=== PATIENT | female | born 1985 | race Caucasian/White ===

== ENCOUNTER 2023-04-01 23:57 | Emergency (ER) | payer SELFPAY ==
--- NOTE | 2023-04-02 00:51 | ER ---
Nurse's Notes [facility] Name: Dayana Blackburn Age: 37 yrs Sex: Female : 1985 Arrival Date: 04/01/2023 Time: 23:57 Bed IW2 Private MD: Diagnosis: Right plantar foot callus Presentation: 04/02 00:33 Chief complaint: Patient states: Patient C/O right bottom of foot pain of 2,onset 1 pf1 month ago, worse tonight. Patient stated took Tylenol 325mg x 4 tablets at 2330. Patient denies any foot injury. Coronavirus screen: Vaccine status: Patient reports being unvaccinated. Client denies travel out of the [place] in the last 14 days. At this time, the client does not indicate any symptoms associated with coronavirus-19. Ebola Screen: Patient negative for fever greater than or equal to 101.5 degrees Fahrenheit, and additional compatible Ebola Virus Disease symptoms. Initial Sepsis Screen: Does the patient meet any 2 criteria? No. Patient's initial sepsis screen is negative. Does the patient have a suspected source of infection? No. Patient's initial sepsis screen is negative. Risk Assessment: Do you want to hurt yourself or someone else? Patient reports no desire to harm self or others. 00:33 Method Of Arrival: Ambulatory pf1 00:33 Acuity: JALEESA 4 pf1 Historical: - Allergies: 00:37 Cinnamon; pf1 - Home Meds: 00:37 Depakote Oral [Active]; pf1 - PMHx: 00:37 Bipolar disorder; pf1 - PSHx: 00:37 section; tubaligation; pf1 - Immunization history:: Adult Immunizations up to date, Client reports having NOT received the Covid vaccine. Last tetanus immunization: < 5 years ago Flu vaccine is not up to date. - Social history:: Smoking status: Patient reports the use of cigarette tobacco products, Patient/guardian denies using alcohol, street drugs. - Family history:: not pertinent. Screenin:35 [facility] ED Fall Risk Assessment (Adult) History of falling in the last 3 months, pf1 including since admission No falls in past 3 months (0 pts) Confusion or Disorientation No (0 pts) Intoxicated or Sedated No (0 pts) Impaired Gait No (0 pts) Mobility Assist Device Used No (0 pt) Altered Elimination No (0 pt) Score/Fall Risk Level 0 - 2 = Low Risk Oriented to surroundings, Maintained a safe environment, Educated pt \T\ family on fall prevention, incl call for assistance when getting out of bed, Assessed \T\ reinforced patient's understanding of fall precautions, Provided non-skid footwear, Hourly rounding (assess needs \T\ fall precautionary measures) done, Used ambulatory aids as needed (educated on \T\ assisted with), Used gait belt as appropriate. 00:35 Abuse screen: Denies threats or abuse. Nutritional screening: No deficits noted. pf1 Tuberculosis screening: No symptoms or risk factors identified. Assessment: 04/01 00:35 General: Appears in no apparent distress. uncomfortable, well groomed, well developed, pf1 Behavior is calm, cooperative, appropriate for age, quiet. 00:35 Pain: Complains of pain in right foot. pf1 00:35 Neuro: No deficits noted. Level of Consciousness is awake, alert, obeys commands, pf1 Oriented to person, place, time, situation. 00:35 Cardiovascular: No deficits noted. Capillary refill < 3 seconds Patient's skin is warm pf1 and dry. Respiratory: No deficits noted. Airway is patent Respiratory effort is even, unlabored, Respiratory pattern is regular, symmetrical. GI: No deficits noted. No signs and/or symptoms were reported involving the gastrointestinal system. : No deficits noted. No signs and/or symptoms were reported regarding the genitourinary system. EENT: No deficits noted. No signs and/or symptoms were reported regarding the EENT system. Derm: No deficits noted. No signs and/or symptoms reported regarding the dermatologic system. Musculoskeletal: Reports pain in right foot since 1 month. Pain is 2 out of 10 on a pain scale. Vital Signs: 04/02 00:33 BP 126 / 89; Pulse 84; Resp 18; Temp 97.1; Pulse Ox 100% on R/A; Weight 83.91 kg; pf1 Height 5 ft. 2 in. ; Pain 2/10; 00:33 Body Mass Index 33.84 (83.91 kg, 157.48 cm) pf1 00:33 Pain Scale: Adult pf1 ED Course: 04/01 00:35 Patient has correct armband on for positive identification. pf1 04/02 00:04 Patient arrived in ED. [id number] 00:19 Esvin Schaffer MD is Attending Physician. sp4 00:35 Arm band placed on right wrist. pf1 00:35 No provider procedures requiring assistance completed. Patient did not have IV access pf1 during this emergency room visit. 00:37 Triage completed. pf1 00:49 Casey Yates DPM is Referral Physician. sp4 Administered Medications: 00:40 Not Given (Patient Refused): traMADol PO 100 mg PO once pf1 00:51 Drug: Ibuprofen PO 800 mg Route: PO; pf1 00:54 Follow up: Response: No adverse reaction; Marked relief of symptoms; Pain is unchanged, pf1 physician notified Medication: 04/01 00:50 VIS not applicable for this client. pf1 Outcome: 04/02 00:51 Discharge ordered by . sp4 00:54 Discharged to home ambulatory. pf1 00:54 Condition: good 00:54 Discharge instructions given to patient, Instructed on discharge instructions, follow up and referral plans. Demonstrated understanding of instructions, follow-up care. 00:55 Patient left the ED. pf1 Signatures: Delia Paniagua [email or web address] Margarita Santos, RN RN pf1 Esvin Schaffer MD MD sp4
--- NOTE | 2023-04-02 00:51 | EDPHYS ---
Physician Documentation [facility] Name: Dayana Blackburn Age: 37 yrs Sex: Female : 1985 Arrival Date: 04/01/2023 Time: 23:57 Bed IW2 Private MD: ED Physician Esvin Schaffer HPI: 04/02 00:19 This 37 yrs old Female presents to ER via Unassigned with complaints of sp4 Puncture Wound To Foot. 00:33 This is a very pleasant female presents with fairly recent onset of the right foot pain sp4 and callus to the bottom of the right foot. There is moderate size right foot callus plantar surface in the arch of the foot. Patient states pain was moderate to severe today in the right foot and she developed vomiting. Patient has noticed callus to the right foot approximately 1 month ago.. Historical: - Allergies: 00:37 Cinnamon; pf1 - Home Meds: 00:37 Depakote Oral [Active]; pf1 - PMHx: 00:37 Bipolar disorder; pf1 - PSHx: 00:37 section; tubaligation; pf1 - Immunization history:: Adult Immunizations up to date, Client reports having NOT received the Covid vaccine. Last tetanus immunization: < 5 years ago Flu vaccine is not up to date. - Social history:: Smoking status: Patient reports the use of cigarette tobacco products, Patient/guardian denies using alcohol, street drugs. - Family history:: not pertinent. ROS: 00:33 Constitutional: Negative for fever, chills, and weight loss, Eyes: Negative for injury, sp4 pain, redness, and discharge, ENT: Negative for injury, pain, and discharge, Neck: Negative for injury, pain, and swelling, Cardiovascular: Negative for chest pain, palpitations, and edema, Respiratory: Negative for shortness of breath, cough, wheezing, and pleuritic chest pain, Abdomen/GI: Negative for abdominal pain, nausea, vomiting, diarrhea, and constipation, Back: Negative for injury and pain, : Negative for injury, bleeding, discharge, and swelling, MS/Extremity: Negative for injury and deformity positive for, right foot pain, right foot callus Skin: Negative for injury, rash, and discoloration, Neuro: Negative for headache, weakness, numbness, tingling, and seizure, Psych: Negative for depression, anxiety, Allergy/Immunology: Negative for hives, rash, and allergies Endocrine: Negative for neck swelling, polydipsia, polyuria, polyphagia, and weight changes Hematologic/Lymphatic: Negative for swollen nodes, abnormal bleeding, and unusual bruising Exam: 00:33 Constitutional: This is a well developed, well nourished patient who is awake, alert, sp4 and in no acute distress. Head/Face: Normocephalic, atraumatic. Eyes: Pupils equal round and reactive to light, extra-ocular motions intact. Lids and lashes normal. Conjunctiva and sclera are not injected. Cornea within normal limits. Periorbital areas with no swelling, redness, or edema. ENT: Nares patent. No nasal discharge, no septal abnormalities noted. Tympanic membranes are normal and external auditory canals are clear. Oropharynx with no redness, swelling, or masses, exudates, or evidence of obstruction, uvula midline. Mucous membranes moist. Neck: Trachea midline, no thyromegaly or masses palpated, and no cervical lymphadenopathy. Supple, full range of motion without nuchal rigidity, or vertebral point tenderness. No Meningismus. Chest/axilla: Normal chest wall appearance and motion. Nontender with no deformity. No lesions are appreciated. Cardiovascular: Regular rate and rhythm with a normal S1 and S2. No gallops, murmurs, or rubs. Normal PMI, no JVD. No pulse deficits. Respiratory: Lungs have equal breath sounds bilaterally, clear to auscultation and percussion. No rales, rhonchi or wheezes noted. No increased work of breathing, no retractions or nasal flaring. Abdomen/GI: Soft, non-tender, with normal bowel sounds. No distension or tympany. No guarding or rebound. No evidence of tenderness throughout. Back: No spinal tenderness. No costovertebral tenderness. Skin: Warm, dry with normal turgor. Normal color with no rashes, no lesions, and no evidence of cellulitis. Right foot plantar callus. MS/ Extremity: Pulses equal, no cyanosis. Neurovascular intact. Full, normal range of motion. Right foot plantar callus tender to palpation Neuro: Awake and alert, GCS 15, oriented to person, place, time, and situation. Cranial nerves II-XII grossly intact. Motor strength 5/5 in all extremities. Sensory grossly intact. Psych: Awake, alert, with orientation to person, place and time. Behavior, mood, and affect are within normal limits Vital Signs: 00:33 BP 126 / 89; Pulse 84; Resp 18; Temp 97.1; Pulse Ox 100% on R/A; Weight 83.91 kg; pf1 Height 5 ft. 2 in. ; Pain 2/10; 00:33 Body Mass Index 33.84 (83.91 kg, 157.48 cm) pf1 00:33 Pain Scale: Adult pf1 MDM: 00:22 Patient medically screened. sp4 00:48 Differential diagnosis: foreign body, penetrating trauma, Callus, foot callus, puncture sp4 wound. Data reviewed: vital signs, nurses notes. ED course: Patient at this time declined a x-ray of the foot to rule out foreign body, patient was explained that we do not resect foot calluses on the emergent basis. Refer patient to local check airman for evaluation in office for foot callus resection. Administered Medications: 00:40 Not Given (Patient Refused): traMADol PO 100 mg PO once pf1 00:51 Drug: Ibuprofen PO 800 mg Route: PO; pf1 00:54 Follow up: Response: No adverse reaction; Marked relief of symptoms; Pain is unchanged, pf1 physician notified Disposition Summary: 04/02/23 00:51 Discharge Ordered Location: Home sp4 Problem: new sp4 Symptoms: are unchanged sp4 Condition: Stable sp4 Diagnosis - Right plantar foot callus sp4 Followup: sp4 - With: Casey Yates DPM - When: 1 week - Reason: Recheck today's complaints Discharge Instructions: - Discharge Summary Sheet sp4 - Corns and Calluses sp4 Signatures: Dispatcher [employer] EDMS Margarita Santos RN RN pf1 Esvin Schaffer MD MD sp4 Corrections: (The following items were deleted from the chart) 00:47 00:34 Foot Right 3 View+RAD.RAD.BRZ ordered. EDMS EDMS
[2023-04-02] MEDS ORDERED: IBUPROFEN 400 MG TAB ONE (00:57)
[2023-04-02 01:38] VITALS: BP 126/89; TEMP 97.1; O2SAT 100
== END 2023-04-02 00:55 | disposition home or self-care (01) ==
LOC: ER 23:57
DX: L84 Corns and callosities (principal)
CPT/HCPCS: 99283

== ENCOUNTER → 2023-11-24 | Emergency (ER) | payer OTHER, SELFPAY ==
--- NOTE | 2023-11-24 08:31 | ER ---
Nurse's Notes [facility] Name: Dayana Blackburn Age: 38 yrs Sex: Female : 1985 Arrival Date: 11/24/2023 Time: 08:02 Bed 13 Private MD: Diagnosis: Other acute conjunctivitis Presentation: 11/24 08:19 Chief complaint: Bilateral eye drainage, itching, and burning x 2 days. 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 Coronavirus screen: At this time, the client does not indicate any symptoms associated with coronavirus-19. Ebola Screen: No symptoms or risks identified at this time. Initial Sepsis Screen: Does the patient meet any 2 criteria? No. Patient's initial sepsis screen is negative. Does the patient have a suspected source of infection? No. Patient's initial sepsis screen is negative. Risk Assessment: Do you want to hurt yourself or someone else? Patient reports no desire to harm self or others. Onset of symptoms was November 23, 2023. 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 Flu vaccine is not up to date. - Social history:: Smoking status: Patient reports the use of cigarette tobacco products, smokes one-half pack cigarettes per day. - Family history:: not pertinent. - Hospitalizations: : No recent hospitalization is reported. Screenin:59 [facility] ED Fall Risk Assessment (Adult) History of falling in the last 3 months, cp4 including since admission No falls in past 3 months (0 pts) Confusion or Disorientation No (0 pts) Intoxicated or Sedated No (0 pts) Impaired Gait No (0 pts) Mobility Assist Device Used No (0 pt) Altered Elimination No (0 pt) Score/Fall Risk Level 0 - 2 = Low Risk. 08:59 [facility] ED Fall Risk Assessment (Adult) Score/Fall Risk Level 0 - 2 = Low Risk cp4 Oriented to surroundings, Maintained a safe environment, Educated pt \\T\\ family on fall prevention, incl call for assistance when getting out of bed, Assessed \\T\\ reinforced patient's understanding of fall precautions, Provided non-skid footwear, Hourly rounding (assess needs \\T\\ fall precautionary measures) done. Abuse screen: Denies threats or abuse. Nutritional screening: No deficits noted. Tuberculosis screening: No symptoms or risk factors identified. Assessment: 08:59 General: Appears in no apparent distress. Behavior is calm, cooperative, appropriate cp4 for age. Pain: Denies pain. Vital Signs: 08:19 BP 126 / 87; Pulse 84; Resp 16; Temp 97.7(TE); Pulse Ox 100% on R/A; Weight 86.18 kg; hb Height 5 ft. 2 in. ; Pain 3/10; 08:19 Body Mass Index 34.75 (86.18 kg, 157.48 cm) hb 08:19 Pain Scale: Adult hb ED Course: 08:12 Patient arrived in ED. mg5 08:12 Andrés Cabrera MD is Attending Physician. rn 08:15 Rody Scott is Primary Nurse. cp4 08:21 Triage completed. hb 08:23 Arm band placed on. 08:59 Bed in low position. Call light in reach. Side rails up X 1. cp4 08:59 No provider procedures requiring assistance completed. Patient did not have IV access cp4 during this emergency room visit. 09:00 Provided Education on: conjuctivitis. cp4 Administered Medications: No medications were administered Medication: 08:59 VIS not applicable for this client. cp4 Outcome: 08:31 Discharge ordered by . rn 08:59 Discharged to home ambulatory, cp4 08:59 Condition: stable 08:59 Discharge instructions given to patient, Instructed on discharge instructions, follow up and referral plans. medication usage, Demonstrated understanding of instructions, follow-up care, medications, Prescriptions given X 1, 09:00 Patient left the ED. cp4 Signatures: Andrés Cabrera MD MD rn Baxter, Heather, RN RN Shiv Anh mg5 Rody Scott cp4
--- NOTE | 2023-11-24 08:31 | EDPHYS ---
Physician Documentation [facility] Name: Dayana Blackburn Age: 38 yrs Sex: Female : 1985 Arrival Date: 11/24/2023 Time: 08:02 Bed 13 Private MD: ED Physician Andrés Cabrera HPI: 11/24 08:26 This 38 yrs old Female presents to ER via Ambulatory with complaints of [place] [facility]. rn 08:26 The patient is experiencing matting or discharge, redness, tearing, to both eyes, rn caused by dust. Onset: The symptoms/episode began/occurred yesterday. Duration: the symptoms are continuous. Aggravated by nothing. Alleviated by nothing. Severity of symptoms: At their worst the symptoms were mild in the emergency department the symptoms are unchanged. The patient has not experienced similar symptoms in the past. The patient has not recently seen a physician. 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 No high-speed injury. No foreign bodies in the eye or foreign body sensation. Patient reports green discharge out of both eyes, right eye is worse than left.. 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 Flu vaccine is not up to date. - Social history:: Smoking status: Patient reports the use of cigarette tobacco products, smokes one-half pack cigarettes per day. - Family history:: not pertinent. - Hospitalizations: : No recent hospitalization is reported. ROS: 08:26 Constitutional: Negative for fever, chills, and weight loss, Eyes: Positive for redness rn and drainage of bilateral eyes. Exam: 08:26 Constitutional: This is a well developed, well nourished patient who is awake, alert, rn and in no acute distress. Eyes: Bilateral conjunctival injection. No foreign body identified. No corneal abrasions. Mild green drainage inner canthi. No hypopyon Vital Signs: 08:19 BP 126 / 87; Pulse 84; Resp 16; Temp 97.7(TE); Pulse Ox 100% on R/A; Weight 86.18 kg; hb Height 5 ft. 2 in. ; Pain 310; 08:19 Body Mass Index 34.75 (86.18 kg, 157.48 cm) hb 08:19 Pain Scale: Adult hb MDM: 08:12 Patient medically screened. rn 08:26 Differential diagnosis: Data reviewed: vital signs, nurses notes, and as a result, I rn will discharge patient. Counseling: I had a detailed discussion with the patient and/or guardian regarding the historical points, exam findings, and any diagnostic results supporting the discharge/admit diagnosis, the need for outpatient follow up, to return to the emergency department if symptoms worsen or persist or if there are any questions or concerns that arise at home. Special discussion: I discussed with the patient/guardian in detail that at this point there is no indication for admission to the hospital. It is understood, however, that if the symptoms persist or worsen the patient needs to return immediately for re-evaluation. Administered Medications: No medications were administered Disposition Summary: 11/24/23 08:31 Discharge Ordered Notes: Location: Home rn Problem: new rn Symptoms: are unchanged rn Condition: Stable rn Diagnosis - Other acute conjunctivitis rn Followup: rn - With: Private Physician - When: As needed - Reason: Recheck today's complaints, Re-evaluation by your physician Discharge Instructions: - Discharge Summary Sheet rn - Bacterial Conjunctivitis, Adult rn Forms: - Medication Reconciliation Form rn - Thank You Letter rn - Antibiotic furniture assembler - Prescription Opioid Use rn - Patient Portal Instructions rn - Leadership Thank You Letter rn - Work release form eb Prescriptions: - Vigamox 0.5 % Ophthalmic Drops - instill 1 drop OPHTHALMIC route every 8 hours for 7 days; 5 milliliter; rn Refills: 0, Product Selection Permitted Signatures: Andrés Cabrera MD MD rn Baxter, Heather, RN RN
[2023-11-24 13:22] VITALS: BP 126/87; TEMP 97.7; O2SAT 100
== END ==
LOC: ER 08:02
DX: H10.33 Unspecified acute conjunctivitis, bilateral (principal); F31.9 Bipolar disorder, unspecified; F17.210 Nicotine dependence, cigarettes, uncomplicated; Z88.8 Allergy status to other drugs, medicaments and biological substances; Z91.02 Food additives allergy status
CPT/HCPCS: 99283

== ENCOUNTER → 2023-12-12 | Emergency (ER) | payer OTHER ==
[~2023-12-12] MED LIST: HYDROCODONE/APAP 7.5/325 MG TAB ONE; KETOROLAC 30 MG/ML INJ ONE
--- NOTE | 2023-12-12 19:17 | RAD REPORT ---
EXAM DESCRIPTION: RAD - Shoulder Right 2 View - 12/12/2023 7:10 pm CLINICAL HISTORY: PAIN COMPARISON: No comparisons FINDINGS: No fracture or dislocation seen.
--- NOTE | 2023-12-12 19:58 | ER ---
Nurse's Notes [facility] Name: Dayana Blackburn Age: 38 yrs Sex: Female : 1985 Arrival Date: 12/12/2023 Time: 18:15 Bed DX4 Private MD: Diagnosis: Pain in right shoulder Presentation: 12/12 18:26 Chief complaint: Patient states: she was moving a box of dough at work, when the box ap3 fell, causing her to injure her right shoulder. patient reports the pain to be a 3/10 and describes it to be a burning feeling. Coronavirus screen: At this time, the client does not indicate any symptoms associated with coronavirus-19. Ebola Screen: No symptoms or risks identified at this time. Initial Sepsis Screen: Does the patient meet any 2 criteria? No. Patient's initial sepsis screen is negative. Does the patient have a suspected source of infection? No. Patient's initial sepsis screen is negative. Risk Assessment: Do you want to hurt yourself or someone else? Patient reports no desire to harm self or others. Onset of symptoms was December 12, 2023 at 13:00. 18:26 Method Of Arrival: Ambulatory ap3 18:26 Acuity: JALEESA 4 ap3 Triage Assessment: 18:28 General: Appears in no apparent distress. Behavior is calm, cooperative, appropriate ap3 for age. Pain: Complains of pain in anterior aspect of right shoulder and posterior aspect of right shoulder Pain currently is 3 out of 10 on a pain scale. Quality of pain is described as burning. Neuro: Level of Consciousness is awake, alert, obeys commands, Oriented to person, place, time, situation. Cardiovascular: Patient's skin is warm and dry. Respiratory: Airway is patent Respiratory effort is even, unlabored, Respiratory pattern is regular, symmetrical. 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 - Social history:: Smoking status: Patient reports the use of cigarette tobacco products, denies chronic smoking, but will smoke occasionally, Reported history of juuling and/or vaping. Screenin:28 [facility] ED Fall Risk Assessment (Adult) Confusion or Disorientation No (0 pts). Abuse ap3 screen: Denies threats or abuse. Nutritional screening: No deficits noted. Tuberculosis screening: No symptoms or risk factors identified. Assessment: 20:42 General: Appears in no apparent distress. comfortable, obese, well groomed, well pf1 developed, Behavior is calm, cooperative, appropriate for age, quiet. 20:42 Pain: Complains of pain in posterior aspect of right shoulder and anterior aspect of pf1 right shoulder. Neuro: No deficits noted. Level of Consciousness is awake, alert, obeys commands, Oriented to person, place, time, situation. Cardiovascular: No deficits noted. Capillary refill < 3 seconds Patient's skin is warm and dry. Respiratory: No deficits noted. Airway is patent Respiratory effort is even, unlabored, Respiratory pattern is regular, symmetrical. GI: No deficits noted. No signs and/or symptoms were reported involving the gastrointestinal system. : No deficits noted. No signs and/or symptoms were reported regarding the genitourinary system. EENT: No deficits noted. No signs and/or symptoms were reported regarding the EENT system. Derm: No deficits noted. No signs and/or symptoms reported regarding the dermatologic system. Musculoskeletal: Reports pain in posterior aspect of right shoulder and anterior aspect of right shoulder. Vital Signs: 18:26 Pulse 92; Resp 17; Temp 98.1; Pulse Ox 100% ; Weight 86.18 kg; Height 5 ft. 2 in. ; ap3 Pain 3/10; 18:26 BP 119 / 87; ap3 20:50 BP 113 / 76; Pulse 89; Resp 16; Pulse Ox 100% on R/A; pf1 18:26 Body Mass Index 34.75 (86.18 kg, 157.48 cm) ap3 18:26 Pain Scale: Adult ap3 ED Course: 18:18 Patient arrived in ED. mg5 18:20 [facility]C [facility] kb 18:20 Magnus Alvarado MD is Attending Physician. kb 18:27 Triage completed. ap3 18:28 Arm band placed on left wrist. ap3 19:12 Shoulder Right (2 View) XRAY In Process Unspecified. EDMS 20:30 Patient has correct armband on for positive identification. Provided Education on: pf1 prescription. 20:50 Sling \T\ swathe to right arm. pf1 20:52 No provider procedures requiring assistance completed. Patient did not have IV access pf1 during this emergency room visit. Administered Medications: 18:35 Drug: Ketorolac IM 30 mg IM once Route: IM; Site: left deltoid; ap3 19:30 Follow up: Response: No adverse reaction; Marked relief of symptoms; Pain is decreased pf1 18:36 Drug: Hydrocodone-Acetaminophen PO (7.5 mg-325 mg) 1 tabs PO once Route: PO; ap3 19:30 Follow up: Response: No adverse reaction; Marked relief of symptoms; Pain is decreased pf1 Medication: 20:53 VIS not applicable for this client. pf1 Outcome: 19:58 Discharge ordered by . kb 20:52 Discharged to home ambulatory, pf1 20:52 Condition: improved 20:52 Discharge instructions given to patient, Instructed on discharge instructions, follow up and referral plans. Demonstrated understanding of instructions, follow-up care, medications, Prescriptions given X 1, 20:54 Patient left the ED. pf1 Signatures: Dispatcher [employer] EDMS Toña Benoit, SCREW MACHINE HAND-C SCREW MACHINE HAND-Elsie Blankenship RN RN ap3 Margarita Santos RN RN pf1 Anh Chaney mg5
--- NOTE | 2023-12-12 19:58 | EDPHYS ---
Physician Documentation [facility] Name: Dayana Blackburn Age: 38 yrs Sex: Female : 1985 Arrival Date: 12/12/2023 Time: 18:15 Bed DX4 Private MD: ED Physician Magnus Alvarado HPI: 12/12 19:57 This 38 yrs old Female presents to ER via Ambulatory with complaints of Shoulder Pain. kb 19:57 Patient is a 38-year-old female who presents for right shoulder pain that started after kb lifting a heavy box of pizza dough around 130 today. Reports decreased range of motion and tenderness to right shoulder. 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 - Social history:: Smoking status: Patient reports the use of cigarette tobacco products, denies chronic smoking, but will smoke occasionally, Reported history of juuling and/or vaping. ROS: 19:56 Constitutional: Negative for fever, chills, and weight loss, kb 19:56 MS/extremity: Positive for pain, of the posterior aspect of right shoulder and anterior aspect of right shoulder, 19:56 All other systems are negative, Exam: 19:56 Constitutional: This is a well developed, well nourished patient who is awake, alert, kb and in no acute distress. Head/Face: Normocephalic, atraumatic. ENT: Moist Mucous membranes Cardiovascular: Regular rate Respiratory: Respirations even and unlabored. No increased work of breathing. Talking in full sentences Skin: Warm, dry with normal turgor. Normal color. Neuro: Awake and alert, GCS 15, oriented to person, place, time, and situation. Moves all extremities. Normal gait. 19:56 Musculoskeletal/extremity: Extremities: grossly normal except: noted in the posterior aspect of right shoulder and anterior aspect of right shoulder: decreased ROM, pain, tenderness, ROM: limited active range of motion due to pain, Circulation is intact in all extremities. Sensation intact. Vital Signs: 18:26 Pulse 92; Resp 17; Temp 98.1; Pulse Ox 100% ; Weight 86.18 kg; Height 5 ft. 2 in. ; ap3 Pain 3/10; 18:26 BP 119 / 87; ap3 20:50 BP 113 / 76; Pulse 89; Resp 16; Pulse Ox 100% on R/A; pf1 18:26 Body Mass Index 34.75 (86.18 kg, 157.48 cm) ap3 18:26 Pain Scale: Adult ap3 MDM: 18:21 Patient medically screened. kb 19:56 Differential diagnosis: Anterior dislocation with fracture, Anterior dislocation kb without fracture, Posterior dislocation with fracture, Posterior dislocation without fracture, strain, sprain, fracture. Data reviewed: vital signs, nurses notes. Counseling: I had a detailed discussion with the patient and/or guardian regarding the historical points, exam findings, and any diagnostic results supporting the discharge/admit diagnosis, radiology results, the need for outpatient follow up, a family practitioner, to return to the emergency department if symptoms worsen or persist or if there are any questions or concerns that arise at home. 12/12 18:26 Order name: Shoulder Right (2 View) XRAY; Complete Time: 19:41 kb Administered Medications: 18:35 Drug: Ketorolac IM 30 mg IM once Route: IM; Site: left deltoid; ap3 19:30 Follow up: Response: No adverse reaction; Marked relief of symptoms; Pain is decreased pf1 18:36 Drug: Hydrocodone-Acetaminophen PO (7.5 mg-325 mg) 1 tabs PO once Route: PO; ap3 19:30 Follow up: Response: No adverse reaction; Marked relief of symptoms; Pain is decreased pf1 Disposition Summary: 12/12/23 19:58 Discharge Ordered Notes: Location: Home kb Condition: Stable kb Diagnosis - Pain in right shoulder kb Followup: kb - With: Emergency Department - When: As needed - Reason: Worsening of condition Followup: kb - With: Private Physician - When: 2 - 3 days - Reason: Recheck today's complaints, Continuance of care, Re-evaluation by your physician Discharge Instructions: - Discharge Summary Sheet kb - Shoulder Pain, [id number] kb Forms: - Medication Reconciliation Form kb - Thank You Letter kb - Antibiotic Education kb - Prescription Opioid Use kb - Patient Portal Instructions kb - Leadership Thank You Letter kb Prescriptions: - Diclofenac Sodium 75 mg Oral tablet, delayed release (enteric coated) - take 1 tablet ORAL route 2 times per day As needed; 30 tablet; Refills: 0, kb Product Selection Permitted Signatures: Dispatcher [employer] Toña Bose FNP-C FNP-Ckb Prokisch, Amanda, RN RN ap3 Margarita Santos RN pf1
== END ==
LOC: ER 18:15
DX: M25.511 Pain in right shoulder (principal); F17.210 Nicotine dependence, cigarettes, uncomplicated; Z91.018 Allergy to other foods